=== PATIENT | male | born 2000 | race Caucasian/White ===

== ENCOUNTER 2018-01-16 16:17 | Emergency (ER) | payer OTHER ==
[2018-01-16 16:26] VITALS: TEMP 98.3; O2SAT 100
[2018-01-16] MEDS ORDERED: Sodium Chloride 0.9% 1,000 ML IV STA (17:47)
[2018-01-16 18:22] LABS: BASO % 0.3 % (0.0-2.0); EOS % 0.5 % (0.0-4.0); HEMOGLOBIN 10.1 g/dL (12.0-18.0); LYMPH # 1.3 K/uL (1.0-4.3); LYMPH % 31.4 % (20.0-40.0); MEAN CELL VOLUME 117.4 fl (80.0-94.0); MEAN CORPUSCULAR HEMOGLOBIN 39.7 pg (27.0-31.0); MEAN CORPUSCULAR HGB CONC 33.8 g/dL (33.0-37.0); MEAN PLATELET VOLUME 9.5 fl (7.2-11.7); MONO # 0.4 K/uL (0.0-0.8); NEUT # 2.3 K/uL (1.8-7.0); NEUT % 56.8 % (50.0-75.0); NRBC % 0.1 % (0.0-0.0); RBC 2.54 Mil/uL (4.40-5.90); RED CELL DISTRIBUTION WIDTH 17.1 % (11.5-14.5)
[2018-01-16 18:35] LABS: ALB/GLOB RATIO 1.7 (1.0-2.1); ALBUMIN 4.8 g/dL (3.5-5.0); ALT/SGPT 31 U/L (21-72); AST/SGOT 22 U/L (17-59); BLOOD UREA NITROGEN 12 mg/dl (9-20); CALCIUM 9.8 mg/dL (8.4-10.2); GFR NON-AFRICAN AMERICAN > 60
--- NOTE | 2018-01-16 18:41 | ED PDOC ---
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 Patient states he began to feel lightheaded at around lunch time and began feeling palpitations just prior to arrival. Patient reports he felt like "his heart would beat fast and then stop for a little bit." Patient additionally reports of having a little less sleep than usual last night but still had approximately 6 hours of sleep. Patient also reports of doing a little more activity than usual because he is moving into [employer] today. Patient may not have been hydrated as much as he should be but states he had all meals today. Denies chest pain and shortness of breath. PMD: Dr. Shabazz (From [facility]) Vaccinations are up to date Past Medical History Reviewed: Historical Data, Nursing Documentation, Vital Signs Vital Signs: Last Vital Signs Temp 98.3 F 01/16/18 16:23 Pulse 66 01/16/18 19:41 Resp 20 01/16/18 19:41 BP 122/66 01/16/18 19:41 Pulse Ox 100 01/16/18 19:41 - Medical History Other PMH: paroxysmal nocturnal hemoglobinuria - Surgical History Surgical History: No Surg Hx - Family History Family History: States: No Known Family Hx - Allergies Allergies/Adverse Reactions: Allergies Allergy/AdvReac Type Severity Reaction Status Date / Time No Known Allergies Allergy Verified 01/16/18 16:23 Review of Systems ROS Statement: Except As Marked, All Systems Reviewed And Found Negative (as per HPI) Cardiovascular: Positive for: Palpitations. Negative for: Chest Pain Respiratory: Negative for: Shortness of Breath Neurological: Positive for: Other (Lightheadedness) Physical Exam - Reviewed Nursing Documentation Reviewed: Yes Vital Signs Reviewed: Yes - Physical Exam Appears: Positive for: Well, No Acute Distress Head Exam: Positive for: ATRAUMATIC, NORMOCEPHALIC Skin: Positive for: Warm, Dry Eye Exam: Positive for: EOMI, PERRL ENT: Negative for: Pharyngeal Erythema, Tonsillar Exudate Neck: Positive for: Painless ROM, Supple Cardiovascular/Chest: Positive for: Regular Rate, Rhythm. Negative for: Edema, Murmur Respiratory: Positive for: Normal Breath Sounds. Negative for: Wheezing, Respiratory Distress Gastrointestinal/Abdominal: Positive for: Soft. Negative for: Tenderness Back: Positive for: Normal Inspection. Negative for: Decreased ROM Extremity: Positive for: Normal ROM. Negative for: Deformity Lymphatic: Negative for: Adenopathy Neurologic/Psych: Positive for: Alert. Negative for: Motor/Sensory Deficits - Laboratory Results Result Diagrams: 01/16/18 18:05 01/16/18 18:05 - ECG ECG Rhythm: Positive for: Normal QRS, Normal ST Segment, Sinus Rhythm Rate: 78 O2 Sat by Pulse Oximetry: 100 (RA) Pulse Ox Interpretation: Normal Medical Decision Making Medical Decision Making: Time: 1804 Impression: Palpitations Differentials include but not limited to electrolyte abnormality, anemia, dehydration, adverse medication reaction, low likelihood of cardiac arrhythmia given normal EKG and no risk factors. Plan: -- Type and Screen -- EKG -- B-Type Natriuretic -- CMP -- Magnesium -- Phosphorus -- Thyroid Stimulating Hormone -- Troponin I -- CBC with differentials -- Sodium Chloride IV 1000 mls/hr -- Backhoe Operator -- IV Insertion Time: 1809 -- Discussed with Dr. Shabazz who agrees with plan. 1899 Labs demonstrate anemia and leukopenia, otherwise no emergently significant abnormalities. DW pt and family findings who report that anemia and leukopenia c /w previous. Pt feels better. Stable for discharge with followup. Scribe Attestation: Documented by Hunter Ruiz acting as a scribe for Dr. Rosalinda Barba. Provider Scribe Attestation: All medical record entries made by the Scribe were at my direction and personally dictated by me. I have reviewed the chart and agree that the record accurately reflects my personal performance of the history, physical exam, medical decision making, and the department course for this patient. I have also personally directed, reviewed, and agree with the discharge instructions and disposition. Disposition - Clinical Impression Clinical Impression: Palpitations Counseled Patient/Family Regarding: Studies Performed, Diagnosis, Need For Followup - Disposition Disposition: Routine/Home Disposition Time: 19:00 Condition: IMPROVED Additional Instructions: FOLLOW UP WITH [facility] IN 2-3 DAYS FOR REEVALUATION DRINK PLENTY OF HYDRATING FLUIDS AND REST Instructions: Palpitations (DC) Forms: [employer] (Uzbek)
[2018-01-16 18:45] LABS: B-TYPE NATRIURETIC PEPTIDE 28.8 pg/ml (0-450)
[2018-01-16 19:41] VITALS: BP 122/66; RESP 20
--- NOTE | 2018-01-17 08:20 | CARD ---
APPROVED REPORT Date of service: 01/16/2018 <Conclusion> Normal sinus rhythm Normal ECG
[2018-01-17 15:25] VITALS: PULSE 78
== END 2018-01-16 19:43 | disposition home or self-care (01) ==
LOC: H.ER 16:17
DX: R00.2 Palpitations (principal); D64.9 Anemia, unspecified; D72.819 Decreased white blood cell count, unspecified
CPT/HCPCS: 80053; 83735; 83880; 84100; 84443; 84484; 85025; 86850; 86900; 93005; 99284; J7030

== ENCOUNTER 2018-06-30 22:38 | Emergency (ER) | payer OTHER ==
[2018-06-30 22:44] VITALS: O2SAT 99
[2018-06-30] MEDS ORDERED: cefTRIAXone 2 GM in Sodium Chloride 0.9% 100 ML IVPB STA (23:00)
[2018-06-30] MEDS ORDERED: Sodium Chloride 0.9% 1,000 ML IV STA (23:00)
[2018-06-30 23:34] LABS: BASO % 0.2 % (0.0-2.0); EOS % 0.1 % (0.0-4.0); HEMOGLOBIN 9.1 g/dL (12.0-18.0); LYMPH # 0.4 K/uL (1.0-4.3); LYMPH % 13.5 % (20.0-40.0); MEAN CELL VOLUME 119.1 fl (80.0-94.0); MEAN CORPUSCULAR HEMOGLOBIN 39.5 pg (27.0-31.0); MEAN CORPUSCULAR HGB CONC 33.1 g/dL (33.0-37.0); MEAN PLATELET VOLUME 9.7 fl (7.2-11.7); MONO # 0.1 K/uL (0.0-0.8); MONO % 2.3 % (0.0-10.0); NEUT # 2.7 K/uL (1.8-7.0); NEUT % 83.9 % (50.0-75.0); NRBC % 0.1 % (0.0-0.0); RBC 2.32 Mil/uL (4.40-5.90); RED CELL DISTRIBUTION WIDTH 17.3 % (11.5-14.5); WHITE BLOOD COUNT 3.3 K/uL (4.8-10.8)
--- NOTE | 2018-06-30 23:44 | ED PDOC ---
HPI: Fever Time Seen by Provider: 06/30/18 22:51 Additional Comments: 17 y/o male with history of paroxysmal nocturnal hem oglobinuria who is currenlty on immunotherapy presents to the ED complaining of fever. Patient states he was leaving hockey practice when he felt feverish and chils and started feeling spastic movement of his legs. Patient also reports mild cough and mild sore throat. Patient denies headache or vision changes. Denies neck pain or neck stiffness. Patient states the medications he is taking puts him at increased risk for meningitis and is concerned about that. Past Medical History Reviewed: Historical Data, Nursing Documentation, Vital Signs Vital Signs: Last Vital Signs Temp 100.3 F H 06/30/18 23:21 Pulse 110 H 06/30/18 22:41 Resp 18 06/30/18 22:41 BP 115/67 06/30/18 22:41 Pulse Ox 99 06/30/18 22:41 - Medical History Other PMH: paroxysmal nocturnal hemoglobinuria - Family History Family History: States: Unknown Family Hx - Allergies Allergies/Adverse Reactions: Allergies Allergy/AdvReac Type Severity Reaction Status Date / Time No Known Allergies Allergy Verified 06/30/18 22:40 Review of Systems ROS Statement: Except As Marked, All Systems Reviewed And Found Negative Constitutional: Positive for: Fever, Chills, Other (leg spasms) Eyes: Negative for: Vision Change ENT: Positive for: Throat Pain Respiratory: Positive for: Cough Musculoskeletal: Negative for: Neck Pain Neurological: Negative for: Headache Physical Exam - Reviewed Nursing Documentation Reviewed: Yes Vital Signs Reviewed: Yes - Physical Exam Appears: Positive for: Well, Non-toxic, No Acute Distress Head Exam: Positive for: ATRAUMATIC, NORMAL INSPECTION, NORMOCEPHALIC Skin: Positive for: Normal Color, Warm, DRY Eye Exam: Positive for: EOMI, Normal appearance, PERRL ENT: Positive for: Normal ENT Inspection Neck: Positive for: Normal (no meningismus), Painless ROM, Supple Cardiovascular/Chest: Positive for: Tachycardia Respiratory: Positive for: Normal Breath Sounds. Negative for: Respiratory Distress Gastrointestinal/Abdominal: Positive for: Normal Exam, Soft. Negative for: Tenderness Back: Positive for: Normal Inspection Extremity: Positive for: Normal ROM. Negative for: Pedal Edema, Deformity Neurologic/Psych: Positive for: Alert, Oriented. Negative for: Motor/Sensory Deficits - Laboratory Results Result Diagrams: 06/30/18 23:27 06/30/18 23:27 - ECG O2 Sat by Pulse Oximetry: 99 (RA) Pulse Ox Interpretation: Normal Medical Decision Making Medical Decision Making: Time: 23:00 A/P: 17 y/o with paroxysmal nocturnal hemoglobinuria presents with fever and chills. Patient is well appearing and does not have any signs of meningitis. Symptoms are likely a result of viral illness possibly flu. As a precautionary method ordered Rocephin to cover patient while workup ensues. * BMP * Lactic Acid * CBC w/ diff * Influenza A B * Iv fluids * Acetaminophen 650 mg * Rocephin 115AM --Patient's vitals improved, patient states he feels hot but otherwise well --Discussed results with patient and mother, anemia is known to patient --Advised strict followup with PMD tomorrow to discuss continued care and +/- continued antibiotics --Well appearing, afebrile upon discharge Scribe Attestation: Documented by Channing Vázquez acting as a scribe for Mateo Mcneil MD. Provider Scribe Attestation: All medical record entries made by the Scribe were at my direction and personally dictated by me. I have reviewed the chart and agree that the record accurately reflects my personal performance of the history, physical exam, medical decision making, and the department course for this patient. I have also personally directed, reviewed, and agree with the discharge instructions and disposition. Disposition - Clinical Impression Clinical Impression: Fever - Patient ED Disposition Is Patient to be Admitted: No - Disposition Disposition: Routine/Home Disposition Time: 01:15 Condition: STABLE Instructions: Fever of Unknown Origin Forms: [id number] ([place]an)
[2018-06-30 23:52] LABS: BLOOD UREA NITROGEN 17 mg/dl (9-20); CALCIUM 9.7 mg/dL (8.4-10.2); GFR NON-AFRICAN AMERICAN > 60
[2018-07-01 01:12] VITALS: TEMP 99
[2018-07-01 01:13] VITALS: BP 116/63; PULSE 104; RESP 19
== END 2018-07-01 01:20 | disposition home or self-care (01) ==
LOC: H.ER 22:38
DX: R50.9 Fever, unspecified (principal)
CPT/HCPCS: 80048; 83605; 85025; 87040; 87804; 96365; 99284; J0696; J7030